=== PATIENT | female | born 1940 | race Caucasian/White ===

== ENCOUNTER 2016-10-07 13:03 | Inpatient (IN) | payer OTHER ==
[~2016-10-07] VITALS: Ht 157.5 cm; Wt 52.6 kg
--- NOTE | 2016-10-07 13:05 | NUR ---
Arrived via [facility] ambulance with altered mental status. Patient presented to work, began behaving abnormally, throwing things, then became lethargic. Placed in room 2 . Placed on director of cardiac cath lab, blood pressure machine and pulse oximeter. To gown for exam. Side rails up. Report given to Stephenie SALINAS.
--- NOTE | 2016-10-07 13:06 | NUR ---
Patient brought in by ambulance. 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 Patient appears lethargic, answering some simple questions, not following commands at this time. Face appears symmetrical, no facial droop noted, unable to assess strength at this time. No deformities/injuries noted. No other complaints/injuries per patient or noted. Addendum: 10/07/16 at 1427 by PAYTON Answers to questions innappropiate at times.
[2016-10-07] MEDS ORDERED: NACL 0.9% 1,000 ML IV SCH (13:08)
--- NOTE | 2016-10-07 13:10 | NUR ---
Dr. Parsons at bedside
[2016-10-07 13:11] VITALS: BP 111/56; PULSE 105; RESP 16; TEMP 97.4; O2SAT 95
--- NOTE | 2016-10-07 13:30 | NUR ---
# 16 FR Blair catheter with use of sterile technique placed. Immediate return of 150 cc clear yellow urine noted. Bedside drainage bag placed below level of bladder. Urine sample collected and sent to lab. Pt tolerated procedure well
[2016-10-07 13:32] LABS: ANION GAP 8 (5-15); CALCIUM 7.8 mg/dL (8.4-11.0); CHLORIDE 101 mmol/L (98-107); CREATININE 0.69 mg/dL (0.55-1.30); GLUCOSE 386 mg/dL (70-99); POTASSIUM 3.5 mmol/L (3.5-5.1); SODIUM SERUM 136 mmol/L (136-145); UREA NITROGEN, BLOOD 17 mg/dL (8-21)
[2016-10-07 13:34] LABS: BASOPHILS % (AUTO) 0.3 % (0.0-2.0); EOSINOPHILS % (AUTO) 0.1 % (0.0-4.0); HEMATOCRIT 34.8 % (36-48); HEMOGLOBIN 12.4 g/dL (12.0-16.0); LYMPHOCYTES # (AUTO) 0.5 K/uL (1.0-5.5); LYMPHOCYTES % (AUTO) 4.4 % (20.5-51.5); MEAN CORPUSCULAR HEMOGLOBIN 29 pg (27-31); MEAN CORPUSCULAR HGB CONC 36 % (32-36); MEAN CORPUSCULAR VOLUME 83 fL (79.0-98.0); MONOCYTES # (AUTO) 0.3 K/uL (0.0-1.0); MONOCYTES % (AUTO) 2.3 % (1.7-9.3); NEUTROPHILS # (AUTO) 10.7 K/uL (1.8-7.7); NEUTROPHILS % (AUTO) 92.9 % (40.0-70.0); PLATELET COUNT (AUTO) 235 K/uL (130-430); RED BLOOD CELL COUNT(AUTO) 4.21 MIL/uL (4.2-6.2); RED CELL DISTRIBUTION WIDTH 12.3 % (9.0-15.0); WHITE BLOOD COUNT (AUTO) 11.5 K/uL (4.8-10.8)
[2016-10-07 13:34] LABS: ABG TOTAL HEMOGLOBIN 12.7 G/dL (12.0-18.0); BLOOD GAS BASE EXCESS -2.5 mmol/L (-3.0-3.0); BLOOD GAS COHb% 0.5 % (0.5-1.5); BLOOD GAS PH 7.389 (7.350-7.450); BLOOD O2Hb% 93.2 % (94.0-97.0)
[2016-10-07 13:35] LABS: PROTHROMBIN TIME 10.5 SECS (9.5-12.5)
[2016-10-07 13:37] LABS: ALANINE AMINOTRANSFERASE 21 U/L (12-78); ALBUMIN 3.6 g/dL (3.4-4.8); ASPARTATE AMINOTRANSFERASE 12 U/L (10-37); TOTAL BILIRUBIN 0.6 mg/dL (0.0-1.0); TOTAL PROTEIN, SERUM 6.7 g/dL (6.4-8.3)
[2016-10-07] MEDS ORDERED: INSULIN REGULAR, HUMAN 10 UNITS/0.1 ML INJ IVP ONE (13:45)
[2016-10-07 14:14] LABS: BILIRUBIN,URINE NEGATIVE (NEGATIVE); BLOOD, URINE NEGATIVE (NEGATIVE); CLARITY/URINE CLEAR (CLEAR); COLOR,URINE YELLOW (YELLOW); GLUCOSE,URINE 3+ (NEGATIVE); KETONES,URINE 1+ (NEGATIVE); LEUKOCYTE ESTERASE ,URINE NEGATIVE (NEGATIVE); NITRITE, URINE NEGATIVE (NEGATIVE); PH,URINE 5.5 (5.0-8.0); PROTEIN URINE NEGATIVE (NEGATIVE); UROBILINOGEN,URINE 0.2 (0.2-1.0)
--- NOTE | 2016-10-07 14:15 | NUR ---
Patient in stable condition, no distress noted, monitoring closely.
[2016-10-07 14:23] LABS: BACTERIA,URINE FEW /HPF (None Seen); MUCUS,URINE None Seen /LPF (None Seen); RBC,URINE 0-3 /HPF (0-3); WBC,URINE 0-3 /HPF (0-3)
--- NOTE | 2016-10-07 14:25 | NUR ---
Daughter and grandson at bedside speaking to patient. Family members state that she knows who she is but answers to questions are not making sense at all times, state that is not her baseline. Per family, patient is aware who they are and that she is in the hospital, unaware of what happened. Speech is mumbled per family. Patient states that she only takes diabetic medication, unaware as to what. Family states will try to obtain medications.
[2016-10-07 14:26] LABS: BARBITURATE, URINE NEGATIVE (NEG <=200); BENZODIAZEPINE, URINE POSITIVE (NEG <=150); CANNABINOID, URINE NEGATIVE (NEG <=50); COCAINE, URINE NEGATIVE (NEG <=150); METHAMPHETAMINES SCREEN,URINE NEGATIVE (NEG <=500); OPIATE, URINE NEGATIVE (NEG <=100); PHENCYCLIDINE SCREEN,URINE NEGATIVE (NEG <=25); UR TRICYCLIC ANTIDEPRESSANTS NEGATIVE (NEG <=300); URINE AMPHETAMINE NEGATIVE (NEG <=500); URINE METHADONE NEGATIVE (NEG <=200); URINE OXYCODONE SCREEN NEGATIVE (NEG <=100); URINE PROPOXYPHENE SCREEN NEGATIVE (NEG <=300)
--- NOTE | 2016-10-07 15:31 | NUR ---
Telemetry strip printed, interpreted as SINUS TACHYCARDIA at 112 bpm, and placed on the chart.
[2016-10-07] MEDS ORDERED: INSULIN REGULAR, HUMAN 100 UNITS/ML, 10 ML VIAL (novoLIN R) SUBCUT PRN (15:45)
[2016-10-07] MEDS ORDERED: NACL 0.9% 1,000 ML IV ONE (15:45)
--- NOTE | 2016-10-07 15:55 | NUR ---
Patient will be admitted to care of [facility]. Admitted to med-surg unit. Will go to room 112A. Summary report printed. Report given to Ana M SALINAS at bedside.
[2016-10-07] MEDS ORDERED: GLUCOSE 15 GM GEL (in 37.5 GM TUBE) PO PRN ×2 (16:00)
[2016-10-07] MEDS ORDERED: DEXTROSE 50%-WATER 50 ML DISP.SYRIN IVP PRN ×2 (16:00)
--- NOTE | 2016-10-07 16:00 | NUR ---
ADMIT NOTE Received pt from ER to the floor with a diagnosis of dm outof control. Admission process initiated. patient oriented to pain management, safety and call light-teach back done.
[2016-10-07 16:21] VITALS: BP 115/59; PULSE 110; RESP 17; TEMP 98.3; O2SAT 98
--- NOTE | 2016-10-07 17:15 | NUR ---
ACCUCHECK 221, ADMINISTERED 2 UNITS REGUALR INSULIN PER SLIDING SCALE. FAMILY AT BEDSIDE, UPDATED ON PLAN OF CARE, VSS, PT VERY TIRED, ABLE TO RESPOND TO QUESTIONS, SAFETY MEASURES IN PLACE, CALL LIGHT WITHIN REACH, WILL FOLLOW UP Addendum: 10/07/16 at 1849 by Ana M Serrano RN WRONG PATIENT; ADMINISTERED 4 UNITS PER SLIDING SCALE
[2016-10-07] MEDS ORDERED: METF-796 PO (17:35)
[2016-10-07] MEDS ORDERED: LOSA50TA20 PO (17:35)
[2016-10-07] MEDS ORDERED: GLIP-172 PO (17:35)
[2016-10-07] MEDS ORDERED: ACETAMINOPHEN 325 MG TABLET PO PRN (18:30)
[2016-10-07] MEDS ORDERED: MAGNESIUM SULFATE 50 ML IV PRN (18:30)
[2016-10-07] MEDS ORDERED: ONDANSETRON HCL 4 MG/2 ML VIAL IVP PRN (18:30)
[2016-10-07] MEDS ORDERED: DOCUSATE SODIUM 100 MG CAPSULE PO PRN (18:30)
[2016-10-07] MEDS ORDERED: LORazepam 2 MG/ML VIAL IVP PRN (18:30)
[2016-10-07] MEDS ORDERED: DEXTROSE 50% JECT 50 ML DISP.SYRIN IVP PRN (18:30)
[2016-10-07] MEDS ORDERED: POTASSIUM CHLORIDE 10 MEQ TAB.PRT.SR PO PRN (18:30)
[2016-10-07] MEDS ORDERED: MORPHINE 2 MG/ML INJ. SYRINGE IVP PRN (18:30)
--- NOTE | 2016-10-07 18:50 | NUR ---
CLOSING NOTE PT LAYING IN BED, RESTING, EASY TO AROUSE, ALERT AND ORIENTED X2, YORUBA SPEAKING, INCONTINENT OF BOWEL AND BLADDER AT THE MOMENT, ACCORDING TO FAMILY THAT IS NOT HER BASELINE. IV TO LEFT HAND, PATENT AND INFUSING NS AT ORDERED RATE. GRESHAM CATHETER IN PLACE AND DRAINING CLEAR YELLOW URINE TO GRAVITY, NO S/S OF DISTRESS, SOB, OR PAIN, PATIENT STATES SHE IS JUST VERY TIRED. PT ORIENTED TO USE OF CALL LIGHT AND IT IS PLACED WITHIN REACH, SAFETY MEASURES IN PLACE, SIDE RAILS UP X2, BED ALARM ON, WILL GIVE REPORT TO FOLLOWING SHIFT.
[2016-10-07 19:00] VITALS: BP 111/55; PULSE 105; RESP 16; TEMP 98; O2SAT 98
--- NOTE | 2016-10-07 19:15 | NUR ---
change of shift.pt.initial assessment.family present@bedside.pt.presents quiescent affect;calm,asleep.arusable but unable 2 maintain awaken/alert status.language barrier extant:tongan:sole language.iv fluids infusing.call ligth placed w/in pt's reach.
[2016-10-07 20:00] VITALS: BP 111/55; PULSE 105; RESP 16; TEMP 98; O2SAT 98
--- NOTE | 2016-10-07 20:00 | NUR ---
pt.assessed.v/s assessed.pt.presents quiescent affect;calm,asleep.v/s values w/in normal limits.pt. repositioned.call light place w/in pt's reach.
--- NOTE | 2016-10-07 20:30 | NUR ---
blood glucose assessed:133mg/dl.i have initiated diabetic teaching w/ family.sepcific;hypo glycemic s/s and action 2 b attended / family meals;6/day blood glucose assessment:ac/hs:objective,snacks;family undedstanding satisfactory.
[2016-10-07] MEDS ORDERED: ZOLPIDEM TARTRATE 5 MG TABLET PO PRN (21:00)
[2016-10-07] MEDS: glipiZIDE XL 5 MG TAB ( GLUCOTROL XL) PO SCH (21:00)
--- NOTE | 2016-10-07 21:00 | NUR ---
2100p medications:attempt 2 administer pt.unable to swallow;2/t drowsy status.call ligth placed w/in pt's reach.
[2016-10-07] MEDS: HEPARIN SODIUM,PORCINE 5000 UNITS/ML VIAL SUBCUT SCH (21:55)
--- NOTE | 2016-10-07 22:00 | NUR ---
pt.assessed.pt.repositioned.pt.presents quiescent affect;calm,asleep.family has left the bedside. pt.arousable but not able 2 maintain awaken status.iv fluids infusing.call light placed w/in pt's reach.
--- NOTE | 2016-10-08 | NUR ---
pt.assessed.v/s assessed.pt.repositioned.pt.presents quiescent affect;calm,asleep. call fausto palced w/in pt's reach.
[2016-10-08 00:45] VITALS: BP 100/50; PULSE 92; RESP 18; TEMP 98.1; O2SAT 95
--- NOTE | 2016-10-08 02:00 | NUR ---
pt.assessed.pt.repositioned.iv fluids infusing.pt.presents quiescent affect;calm,asleep. call light placed w/in pt's reach.
--- NOTE | 2016-10-08 04:00 | NUR ---
pt.assessed.pt.repositioned.iv fluids d/c / sdr's ordered.call light placed w/in pt's reach.pt.arousable.
[2016-10-08 04:13] VITALS: BP 103/60; PULSE 88; RESP 18; TEMP 97.7; O2SAT 92
--- NOTE | 2016-10-08 05:43 | NUR ---
pt.assessed.blood glucose assesseded:170mg/dl.pt.arousable but unable 2 maintain awaken status. call light placed w/in pt's reach.
[2016-10-08] MEDS: INSULIN ASPART 100 UNITS/ML, 10 ML VIAL (NovoLOG) SUBCUT PRN ×4 (06:29→22:00)
--- NOTE | 2016-10-08 06:30 | NUR ---
willhold the insulin coverage this am:po intake poor.iv fl;uids d/c thia am per dr's order.
[2016-10-08 07:15] LABS: BASOPHILS % (AUTO) 0.3 % (0.0-2.0); EOSINOPHILS # (AUTO) 0.1 K/uL (0.0-0.4); EOSINOPHILS % (AUTO) 1.1 % (0.0-4.0); HEMATOCRIT 35.6 % (36-48); HEMOGLOBIN 12.2 g/dL (12.0-16.0); LYMPHOCYTES # (AUTO) 1.7 K/uL (1.0-5.5); LYMPHOCYTES % (AUTO) 21.3 % (20.5-51.5); MEAN CORPUSCULAR HEMOGLOBIN 29 pg (27-31); MEAN CORPUSCULAR HGB CONC 34 % (32-36); MEAN CORPUSCULAR VOLUME 84 fL (79.0-98.0); MONOCYTES # (AUTO) 0.5 K/uL (0.0-1.0); MONOCYTES % (AUTO) 6.2 % (1.7-9.3); NEUTROPHILS # (AUTO) 5.5 K/uL (1.8-7.7); NEUTROPHILS % (AUTO) 71.1 % (40.0-70.0); PLATELET COUNT (AUTO) 232 K/uL (130-430); RED BLOOD CELL COUNT(AUTO) 4.22 MIL/uL (4.2-6.2); RED CELL DISTRIBUTION WIDTH 12.9 % (9.0-15.0); WHITE BLOOD COUNT (AUTO) 7.8 K/uL (4.8-10.8)
[2016-10-08 07:19] LABS: ANION GAP 5 (5-15); CALCIUM 7.7 mg/dL (8.4-11.0); CHLORIDE 110 mmol/L (98-107); CREATININE 0.51 mg/dL (0.55-1.30); GLUCOSE 188 mg/dL (70-99); SODIUM SERUM 142 mmol/L (136-145); UREA NITROGEN, BLOOD 18 mg/dL (8-21)
[2016-10-08 08:00] VITALS: BP 127/61; PULSE 82; RESP 20; TEMP 98.8; O2SAT 95
--- NOTE | 2016-10-08 08:00 | NUR ---
OPENING NOTE RECEIVED REPORT FROM NIGHT NURSE, PATIENT IS RESTING IN BED COMFORTABLY WITH NO COMPLAINTS OF PAIN, NO NOTED DISTRESS, DISCOMFORT OR SOB. PATIENT IS ALERT AND ORIENTED TO SELF AND DATE BUT IS CONFUSED TO WHERE SHE IS AND HOW SHE CAME TO THE HOSPITAL. PATIENT IS AMBULATORY WITH ASSISTANCE, PATIENT IS EDUCATED TO NOT GET UP WITHOUT ASSISTANCE. BED ALARM IS ON AND PATIENT IS NEAR THE NURSES STATION. CALL LIGHT IS WITHIN REACH AND WILL CONTINUE TO MONITOR.
[2016-10-08] MEDS: HEPARIN SODIUM,PORCINE 5000 UNITS/ML VIAL SUBCUT SCH ×2 (08:57→21:48)
[2016-10-08] MEDS ORDERED: LOSARTAN POTASSIUM 50 MG TABLET (COZAAR) PO SCH (09:00)
[2016-10-08] MEDS: glipiZIDE XL 5 MG TAB ( GLUCOTROL XL) PO SCH ×2 (09:02→21:41)
--- NOTE | 2016-10-08 10:23 | NUR ---
Nutrition Update Ray Scale 13 noted. Pt admitted for DM out of control. Diet: CCHO, mechanical soft BMI: 21.2 kg/m2 RD to follow per nutrition care standards.
--- NOTE | 2016-10-08 10:30 | NUR ---
NOTE PATIENT IS RESTING IN BED COMFORTABLY WITH NO COMPLAINTS OF PAIN, NO NOTED DISTRESS, DISCOMFORT OR SOB. PATIENT'S VITAL SIGNS WERE WITHIN NORMAL RANGE AND ALL MORNING MEDICATIONS WERE GIVEN WITH NO PROBLEMS. BED ALARM IS ON AND BED IS IN LOWEST POSITION. FAMILY IS AT BEDSIDE AND CALL LIGHT IS WITHIN REACH. WILL CONTINUE TO MONITOR.
[2016-10-08 12:00] VITALS: BP 140/74; PULSE 92; RESP 17; TEMP 98.2; O2SAT 92
--- NOTE | 2016-10-08 12:38 | NUR ---
NOTE PATIENT IS RESTING IN BED COMFORTABLY WITH NO COMPLAINTS OF PAIN, NO NOTED DISTRESS, DISCOMFORT OR SOB. PATIENT'S BS WAS CHECKED AND IT WAS 252 AND 6 UNITS OF NOVOLOG WAS GIVEN WITH ANOTHER RN TO WITNESS. BED IS IN LOWEST POSITION, BED ALARM IS ON AND CALL LIGHT IS WITHIN REACH. FAMILY IS AT BEDSIDE AND WILL CONTINUE TO MONITOR.
--- NOTE | 2016-10-08 14:30 | NUR ---
NOTE PATIENT IS RESTING COMFORTABLY IN BED WITH NO COMPLAINTS OF PAIN, NO NOTED DISTRESS, DISCOMFORT OR SOB. BED ALARM IS ON AND BED IS IN LOWEST POSITION, FAMILY IS AT BEDSIDE AND CALL LIGHT IS WITHIN REACH. WILL CONTINUE TO MONITOR
[2016-10-08 15:50] VITALS: BP 136/57; PULSE 84; RESP 17; TEMP 97.9; O2SAT 94
--- NOTE | 2016-10-08 16:12 | NUR ---
DISCHARGE PLANNING DC planning to [place]. Faxed SNF referral [phone]. will follow up. Placed transportation packet in nurses station. Addendum: 10/08/16 at 1636 by Sabina Shaikh DP Called [facility] spoke with JAZMIN Dickens. Faxed requested EMR [phone]. Chrissie stated on-call JAZMIN [phone] follow prompts to follow up if SNF will be authorized. Confirmed with Chrissie Astudillo [facility] contracted facility.
--- NOTE | 2016-10-08 16:28 | NUR ---
NOTE PATIENT IS RESTING IN BED COMFORTABLY WITH NO COMPLAINTS OF PAIN, NO NOTED DISTRESS, DISCOMFORT OR SOB. BED ALARM IS ON AND BED IS IN LOWEST POSITION AND FAMILY IS AT BEDSIDE. CALL LIGHT IS WITHIN REACH AND WILL CONTINUE TO MONITOR.
--- NOTE | 2016-10-08 18:34 | NUR ---
CLOSING NOTE PATIENT IS RESTING COMFORTABLY IN BED WITH NO COMPLAINTS OF PAIN, NO NOTED DISTRESS, DISCOMFORT OR SOB. PATIENT'S BS WAS TAKEN AND IT WAS 267 AND 6 UNITS OF NOVOLOG WAS GIVEN WITH ANOTHER RN TO WITNESS. BED ALARM IS ON AND BED IS LOWEST POSITION. CALL LIGHT IS WITHIN REACH AND FAMILY IS AT BEDSIDE. WILL GIVE REPORT TO NIGHT NURSE.
[2016-10-08 19:10] VITALS: BP 129/81; PULSE 87; RESP 18; TEMP 97.6; O2SAT 95
--- NOTE | 2016-10-08 19:10 | NUR ---
INITIAL ROUNDS RECVD PT IN BED, A/A/O X2 WITH DAUGHTER @ BEDSIDE. NO C/O PAIN AND NO DISTRESS NOTED @ THIS TIME. V/S 129/81,97.6,87,18,95% RA. IV NOTED TO R a/c G 20, NO INFILTRATE, WITH GOOD BLOOD RETURN. DISCUSSED PLAN OF CARE WITH PT AND VERBALIZED UNDERSTANDING. CALL LIGHT WITHIN REACH, WILL CONT TO MONITOR.
--- NOTE | 2016-10-08 21:10 | NUR ---
ROUNDS PT IS AWAKE @ THIS TIME WITH FAMILY @ BEDSIDE. NO C/O PAIN AND NO DISTRESS NOTED. LEFT BED IN LOW POSITION WITH CALL LIGHT WITHIN REACH. WILL CONT TO MONITOR.
--- NOTE | 2016-10-08 23:10 | NUR ---
ROUNDS PT IS AWAKE, WITH FAMILY @ BEDSIDE. NO S/S O PAIN OR ANY DISTRESS. LEFT BED IN LOW POSITION WITH CALL LIGHT WITHIN REACH. WILL CONT TO MONITOR.
[2016-10-09 01:03] VITALS: BP 129/58; PULSE 76; RESP 19; TEMP 97.7; O2SAT 95
--- NOTE | 2016-10-09 01:10 | NUR ---
ROUNDS PT IS RESTING COMFORTABLY @ THIS TIME. NO S/S O PAIN OR ANY DISTRESS. LEFT BED IN LOW POSITION WITH CALL LIGHT WITHIN REACH. WILL CONT TO MONITOR.
[2016-10-09 04:00] VITALS: BP 111/69; PULSE 87; RESP 16; TEMP 98.4; O2SAT 96
--- NOTE | 2016-10-09 05:10 | NUR ---
ASSISTED TO REPOSITION ASSISTED TO TURNED IN BED. NO S/S OF PAIN AND NO RESPI DISTRESS NOTED. CALL LIGHT WITHIN REACH, WILL CONT TO MONITOR.
[2016-10-09] MEDS: INSULIN ASPART 100 UNITS/ML, 10 ML VIAL (NovoLOG) SUBCUT PRN ×4 (06:10→22:38)
[2016-10-09 06:41] LABS: BASOPHILS % (AUTO) 0.5 % (0.0-2.0); EOSINOPHILS # (AUTO) 0.2 K/uL (0.0-0.4); HEMATOCRIT 37.8 % (36-48); LYMPHOCYTES # (AUTO) 1.9 K/uL (1.0-5.5); LYMPHOCYTES % (AUTO) 25.1 % (20.5-51.5); MEAN CORPUSCULAR HEMOGLOBIN 29 pg (27-31); MEAN CORPUSCULAR HGB CONC 35 % (32-36); MEAN CORPUSCULAR VOLUME 84 fL (79.0-98.0); MONOCYTES # (AUTO) 0.5 K/uL (0.0-1.0); NEUTROPHILS # (AUTO) 5.1 K/uL (1.8-7.7); NEUTROPHILS % (AUTO) 65.4 % (40.0-70.0); PLATELET COUNT (AUTO) 283 K/uL (130-430); RED BLOOD CELL COUNT(AUTO) 4.49 MIL/uL (4.2-6.2); RED CELL DISTRIBUTION WIDTH 12.6 % (9.0-15.0); WHITE BLOOD COUNT (AUTO) 7.7 K/uL (4.8-10.8)
--- NOTE | 2016-10-09 06:56 | NUR ---
FINAL ROUNDS PT IS RESTING @ THIS TIME. NO S/S OF PAIN OR ANY DISTRESS NOTED. V/S ARE WNL. ALL NEEDS MET AND ANTICIPATED BY NOC NURSES. BED IN LOW POSITION WITH CALL SIDE RAILS UP X2 FOR SAFETY. CALL LIGHT WITHIN REACH, ENDORSED.
[2016-10-09 07:12] LABS: ANION GAP 7 (5-15); CALCIUM 7.9 mg/dL (8.4-11.0); CHLORIDE 108 mmol/L (98-107); CREATININE 0.55 mg/dL (0.55-1.30); GLUCOSE 212 mg/dL (70-99); POTASSIUM 3.9 mmol/L (3.5-5.1); SODIUM SERUM 142 mmol/L (136-145); UREA NITROGEN, BLOOD 14 mg/dL (8-21)
--- NOTE | 2016-10-09 07:52 | NUR ---
Handoff rounds. Patient blood sugar stabilized. Will verify meal tray pass.
[2016-10-09 08:58] VITALS: BP 125/62; PULSE 91; RESP 16; TEMP 96.6; O2SAT 99
--- NOTE | 2016-10-09 10:03 | NUR ---
Family member of patient at bedside at this time during rounds. Extra cup of coffee, decaf, for patient at this time. Two non-dailry creamer given. No sugar.
[2016-10-09 12:11] VITALS: BP 139/70; PULSE 88; RESP 16; TEMP 97; O2SAT 95
--- NOTE | 2016-10-09 12:11 | NUR ---
Rounds for lunch. Patient accucheck due. Coverage as per sliding scale.
[2016-10-09] MEDS: LOSARTAN POTASSIUM 25 MG TABLET PO SCH (12:20)
--- NOTE | 2016-10-09 12:21 | NUR ---
Ice brought per request of patient and family.
[2016-10-09] MEDS: glipiZIDE XL 5 MG TAB ( GLUCOTROL XL) PO SCH ×2 (12:32→22:35)
[2016-10-09] MEDS: HEPARIN SODIUM,PORCINE 5000 UNITS/ML VIAL SUBCUT SCH ×2 (12:33→22:41)
--- NOTE | 2016-10-09 15:30 | NUR ---
DC of guillen as per request of MD. Patient notes discomfort. Cloudy guillen urine, 700ml, emptied to toilet at this time.
[2016-10-09 16:00] VITALS: BP 155/76; PULSE 85; RESP 21; TEMP 97.6; O2SAT 95
--- NOTE | 2016-10-09 16:58 | NUR ---
Accucheck elevation covered as per sliding scale insulin guideline.
--- NOTE | 2016-10-09 18:16 | NUR ---
Patient/family request for alex malone at this time. MD answered and gave order for the item.
[2016-10-09] MEDS ORDERED: INSULIN ASPART 100 UNITS/ML, 10 ML VIAL (NovoLOG) SUBCUT PRN (18:45)
[2016-10-09 19:05] VITALS: BP 127/75; PULSE 78; RESP 18; TEMP 98.2; O2SAT 98
--- NOTE | 2016-10-09 19:05 | NUR ---
INITIAL ROUNDS RECVD PT IN BED, A/A/O X2 WITH FAMILY @ BEDSIDE. NO C/O PAIN AND NO DISTRESS NOTED @ THIS TIME. V/S 127/75,98.2,78,18,98% RA. IV NOTED TO R A/C G 20, NO INFILTRATE, WITH GOOD BLOOD RETURN. DISCUSSED PLAN OF CARE WITH PT AND VERBALIZED UNDERSTANDING. CALL LIGHT WITHIN REACH, WILL CONT TO MONITOR.
--- NOTE | 2016-10-09 19:28 | NUR ---
Handoff with noc nurse at bedside.
--- NOTE | 2016-10-09 21:05 | NUR ---
ROUNDS PT IS RESTING IN BED WITH FAMILY @ BEDSIDE. NO C/O PAIN AND NO SOB NOTED. BED IN LOW POSITION WITH CALL LIGHT WITHIN REACH. WILL CONT TO MONITOR.
--- NOTE | 2016-10-09 23:05 | NUR ---
ASSISTED TO B/R ASSISTED TO B/R AND SAFELY BACK TO BED. NO S/S OF PAIN AND NO DISTRESS NOTED. BED IN LOW POSITION WITH CALL LIGHT WITHIN REACH. WILL CONT TO MONITOR.
--- NOTE | 2016-10-10 01:05 | NUR ---
ROUNDS PT IS RESTING COMFORTABLY IN BED @ THIS TIME. NO S/S OF PAIN AND NO DISTRESS NOTED. BED IN LOW POSITION WITH CALL LIGHT WITHIN REACH. WILL CONT TO MONITOR.
[2016-10-10] MEDS: INSULIN ASPART 100 UNITS/ML, 10 ML VIAL (NovoLOG) SUBCUT PRN ×2 (06:19→11:49)
[2016-10-10 07:15] LABS: BASOPHILS % (AUTO) 0.5 % (0.0-2.0); EOSINOPHILS # (AUTO) 0.2 K/uL (0.0-0.4); EOSINOPHILS % (AUTO) 3.1 % (0.0-4.0); HEMATOCRIT 38.4 % (36-48); HEMOGLOBIN 13.1 g/dL (12.0-16.0); LYMPHOCYTES # (AUTO) 1.9 K/uL (1.0-5.5); LYMPHOCYTES % (AUTO) 26.1 % (20.5-51.5); MEAN CORPUSCULAR HEMOGLOBIN 29 pg (27-31); MEAN CORPUSCULAR HGB CONC 34 % (32-36); MEAN CORPUSCULAR VOLUME 86 fL (79.0-98.0); MONOCYTES # (AUTO) 0.3 K/uL (0.0-1.0); MONOCYTES % (AUTO) 4.6 % (1.7-9.3); NEUTROPHILS # (AUTO) 4.9 K/uL (1.8-7.7); NEUTROPHILS % (AUTO) 65.7 % (40.0-70.0); PLATELET COUNT (AUTO) 255 K/uL (130-430); RED BLOOD CELL COUNT(AUTO) 4.49 MIL/uL (4.2-6.2); RED CELL DISTRIBUTION WIDTH 12.8 % (9.0-15.0); WHITE BLOOD COUNT (AUTO) 7.3 K/uL (4.8-10.8)
[2016-10-10 07:19] LABS: ANION GAP 9 (5-15); CALCIUM 8.3 mg/dL (8.4-11.0); CHLORIDE 105 mmol/L (98-107); CREATININE 0.57 mg/dL (0.55-1.30); GLUCOSE 205 mg/dL (70-99); POTASSIUM 3.6 mmol/L (3.5-5.1); SODIUM SERUM 141 mmol/L (136-145); UREA NITROGEN, BLOOD 17 mg/dL (8-21)
[2016-10-10 08:00] VITALS: BP_SYST 143; BP_SYST 149; BP_DIAS 59; BP_DIAS 78; PULSE 83; PULSE 90; RESP 17; TEMP 97.1; TEMP 98; O2SAT 96
--- NOTE | 2016-10-10 08:00 | NUR ---
INITIAL NOTE PT LAYING IN BED, ALERT AND ORIENTED, MALTESE SPEAKING, NO S/S OF DISTRESS OR COMPLAINT OF PAIN, IV TO RAC INTACT AND PATENT, VSS. DISCUSSED PLAN OF CARE WITH PATIENT, PATIENT AGREES, SAFETY MEASURES IN PLACE, BED IN LOW POSITION AND LOCKED, PT REORIENTED TO USE OF CALL LIGHT AND IT IS PLACED WITHIN REACH, WILL CONTINUE TO MONITOR
[2016-10-10] MEDS: glipiZIDE XL 5 MG TAB ( GLUCOTROL XL) PO SCH (08:51)
[2016-10-10] MEDS: LOSARTAN POTASSIUM 25 MG TABLET PO SCH (08:51)
[2016-10-10] MEDS: HEPARIN SODIUM,PORCINE 5000 UNITS/ML VIAL SUBCUT SCH (08:52)
--- NOTE | 2016-10-10 10:00 | NUR ---
ROUNDS FAMILY AT BEDSIDE, PT STATES SHE HAS NO NEEDS AT THIS TIME, WILL CONTINUE TO MONITOR
--- NOTE | 2016-10-10 11:00 | NUR ---
DR HYMAN MAKING ROUNDS, RECEIVED DISCHARGE ORDER WITH HOME HEALTH TO FOLLOW UP, ORDER NOTED
[2016-10-10] MEDS ORDERED: GLIP10TA11 PO (11:02)
[2016-10-10] MEDS ORDERED: LISI10TA5 PO (11:02)
[2016-10-10] MEDS ORDERED: SITA100T7 PO (11:02)
--- NOTE | 2016-10-10 11:48 | NUR ---
DC PLANNING: RECEIVED DC ORDER FROM TO [facility] W/ CONTRACTED HOME HEALTH. CALLED/ FAXED DC ORDER AND CLINICALS TO [email or web address] FAX # [phone] TEL # [phone] AND TO [employer] FAX # [phone];TEL# [phone]. BOTH OFFICES ARE CLOSED ON WEEKENDS AND WILL BE OPEN ON TUESDAY.
--- NOTE | 2016-10-10 12:00 | NUR ---
PATIENT PROVIDED WITH TRANSITIONAL CARE PAPERWORK AND INSTRUCTION, PER CASE MANAGEMENT, INSURANCE WAS FAXED NECESSARY PAPER AND HOME HEALTH WOULD FOLLOW UP FOR PATIENT EDUCATION ON DIABETIC TEACHING AND SAFETY EVAL. PT AND FAMILY VERBALIZED UNDERSTANDING. WILL CONTINUE TO MONITOR
[2016-10-10 12:10] VITALS: BP 147/72; PULSE 76; RESP 16; TEMP 97; O2SAT 97
[2016-10-10 12:34] VITALS: BP 147/72; PULSE 76; RESP 16; TEMP 97; O2SAT 97
--- NOTE | 2016-10-10 14:15 | NUR ---
D/C Patient Patient given medication reconciliation form and D/C instructions. Exit Care provided. Patient verbalized understanding. MD discussed with patient the results and treatment provided. Ambulatory with steady gait for discharge to home. Patient in stable condition, ID band removed. IV catheter removed, intact and dressing applied, no active bleeding. Patient educated on pain management. All belongings sent with patient. PATIENT LEFT FACILITY VIA WHEELCHIAR WITH AQUATIC ECOLOGIST AND SEVERAL FAMILY MEMBERS
--- NOTE | 2016-10-11 08:58 | NUR ---
DISCHARGE PLANNING Called [facility] [phone] spoke with JAZMIN Benz regarding request for contracted home health. Tuyet stated request to arrange home health has not been received and takes 24hrs for them to receive faxed request. Tuyet advised [facility] to call back after 1pm today. Addendum: 10/11/16 at 1042 by Sabina COOL Received call from JAZMIN Dickens who will fax requested contracted home health list. Chrissie can be reached [phone] Ext:[phone]. Addendum: 10/11/16 at 1055 by Sabina COOL Faxed home health order to [facility] [phone]. will follow up. Addendum: 10/11/16 at 1255 by Sabina Shaikh DP Spoke with Melinda in intake dept at [facility] patient accepted pending insurance auth. Melinda called and left message and waiting return call back from JAZMIN Dickens. Addendum: 10/11/16 at 1452 by Sabina Shaikh DP Called Chrissie [phone] Ext:[phone] left voice message requesting insurance auth to be forwarded to [facility]. Will continue to follow up. Addendum: 10/12/16 at 0950 by Sabina COOL Called and spoke with Melinda at [facility] who confirmed auth was received and visit arrangements have been made with patient to see her tomorrow 10/13.
--- NOTE | 2016-10-18 14:21 | NUR ---
Discharge Follow Up Phone Call DERRICK BOAT LEVER OPERATOR phoned patient, , but patient only spoke [place] and requested DERRICK BOAT LEVER OPERATOR contact her daughter. DERRICK BOAT LEVER OPERATOR phoned patient's daughters, Madonna [phone] and Bridgette [phone], and left voicemail messages. Madonna phoned back. Madonna stated that patient is doing better. They filled her prescriptions and patient is taking her medication as directed. Patient had not been using a blood glucose monitor for the past year. Madonna got her a new one with a large supply of test strips and is encouraging her to test regularly. Patient is not always compliant with her diet. DERRICK BOAT LEVER OPERATOR asked if patient needed more education, Madonna stated that patient does understand the diet. Patient has attended her follow up appointment with Dr Burciaga. [facility] has been to the home and have also monitored the use of the blood glucose monitor and discussed DM diet. Madonna had no other questions or concerns.
== END 2016-10-10 14:18 | disposition home health service (06) | DRG 637 ==
LOC: SED 13:03 → SMU 15:40
PROVIDERS: ADMIT General Practice; ATTEND General Practice
DX: E11.65 Type 2 diabetes mellitus with hyperglycemia (principal); G93.41 Metabolic encephalopathy; E87.6 Hypokalemia; E83.51 Hypocalcemia; I10 Essential (primary) hypertension; Z79.4 Long term (current) use of insulin; Z71.3 Dietary counseling and surveillance
CPT/HCPCS: 36415; 70450-TC; 71010; 80048; 80053; 80307; 81000-TC; 82803-TC; 82962; 83605; 83735-TC; 83880; 84484; 85025; 85610-TC; 85730-TC; 87040-TC; 93005; 96374; 97110-GP; 97116-GP; 97530-GP; 99285; J1644; J1815; J7030

== ENCOUNTER 2017-08-26 18:46 | Emergency (ER) | payer OTHER ==
[~2017-08-26] VITALS: Ht 142.2 cm; Wt 49.0 kg
[~2017-08-26 18:46] MED LIST: GLIP10TA11 PO; LISI10TA5 PO; METF-796 PO; SITA100T7 PO
[2017-08-26 19:02] VITALS: BP_SYST 145
[2017-08-26 19:13] LABS: BILIRUBIN,URINE NEGATIVE (NEGATIVE); BLOOD, URINE 2+ (NEGATIVE); CLARITY/URINE CLOUDY (CLEAR); COLOR,URINE YELLOW (YELLOW); GLUCOSE,URINE 3+ (NEGATIVE); KETONES,URINE TRACE (NEGATIVE); LEUKOCYTE ESTERASE ,URINE 2+ (NEGATIVE); NITRITE, URINE NEGATIVE (NEGATIVE); PH,URINE 5.5 (5.0-8.0); PROTEIN URINE NEGATIVE (NEGATIVE); UROBILINOGEN,URINE 0.2 (0.2-1.0)
[2017-08-26 19:26] LABS: WBC,URINE >100 /HPF (0-3)
[2017-08-26 19:27] LABS: BACTERIA,URINE RARE /HPF (None Seen); YEAST,URINE Few /HPF (None Seen)
[2017-08-26] MEDS ORDERED: NITROFURANTOIN MONOHYD/M-CRYST 100 MG CAPSULE PO ONE (19:30)
[2017-08-26] MEDS ORDERED: PHENAZOPYRIDINE HCL 100 MG TABLET PO ONE (19:30)
[2017-08-26 19:45] VITALS: BP_SYST 138
== END 2017-08-26 19:45 | disposition home or self-care (01) ==
LOC: SED 18:46
DX: N39.0 Urinary tract infection, site not specified (principal); I10 Essential (primary) hypertension; E11.9 Type 2 diabetes mellitus without complications; E78.00 Pure hypercholesterolemia, unspecified; Z79.899 Other long term (current) drug therapy
CPT/HCPCS: 81000-TC; 87086; 99284

== ENCOUNTER 2017-09-10 20:19 | Emergency (ER) | payer OTHER ==
[~2017-09-10] VITALS: Ht 160 cm; Wt 53.5 kg
[2017-09-10 20:20] VITALS: BP_SYST 161
--- NOTE | 2017-09-10 20:20 | NUR ---
Patient to ER bed 7 to gown for evaluation. Side rails up. Report given to Chandan SALINAS.
--- NOTE | 2017-09-10 20:20 | NUR ---
Pt report received from RITA Topete. Pt arrives in W/C moaning and in tears with c/o lower pelvic pain since 17:00 that began at home after walking around at a swap meet. Pt tx here 2 weeks ago for UTI.
--- NOTE | 2017-09-10 20:20 | NUR ---
ED Kwaw at bedside for medical evaluation.
[2017-09-10] MEDS ORDERED: KETOROLAC TROMETHAMINE 30 MG VIAL IVP ONE (20:30)
[2017-09-10] MEDS ORDERED: NACL 0.9% 1,000 ML IV ONE (20:30)
--- NOTE | 2017-09-10 20:35 | NUR ---
# 18 gauge angiocath placed to LAC. Use of asceptic technique. Opsite placed over site. Blood return noted. Blood for lab drawn from site. Flushed with 10 cc of normal saline. No evidence of infiltration noted. Patient tolerated well.
--- NOTE | 2017-09-10 20:40 | NUR ---
In/Out urinary cath placed, 150 mL clear-cloudy urine return. Sample collected and sent to lab.
[2017-09-10] MEDS ORDERED: cefTRIAXone 2 GM VIAL ONE (20:50)
[2017-09-10 20:55] LABS: BILIRUBIN,URINE NEGATIVE (NEGATIVE); GLUCOSE,URINE 3+ (NEGATIVE); KETONES,URINE NEGATIVE (NEGATIVE); LEUKOCYTE ESTERASE ,URINE 2+ (NEGATIVE); NITRITE, URINE NEGATIVE (NEGATIVE); PROTEIN URINE NEGATIVE (NEGATIVE); UROBILINOGEN,URINE 0.2 (0.2-1.0)
[2017-09-10 21:06] LABS: BLOOD, URINE TRACE (NEGATIVE); CLARITY/URINE HAZY (CLEAR); COLOR,URINE STRAW (YELLOW)
[2017-09-10 21:08] LABS: RBC,URINE 0-3 /HPF (0-3); WBC,URINE 50-80 /HPF (0-3)
--- NOTE | 2017-09-10 21:08 | NUR ---
Lab at bedside to redraw blood. Previous sample hemolyzed.
[2017-09-10 21:09] LABS: BACTERIA,URINE MODERATE /HPF (None Seen); MUCUS,URINE None Seen /LPF (None Seen); YEAST,URINE Few /HPF (None Seen)
[2017-09-10 21:23] LABS: BASOPHILS # (AUTO) 0.1 K/uL (0.0-0.2); BASOPHILS % (AUTO) 0.9 % (0.0-2.0); EOSINOPHILS # (AUTO) 0.2 K/uL (0.0-0.4); EOSINOPHILS % (AUTO) 2.3 % (0.0-4.0); HEMATOCRIT 35.5 % (36-48); HEMOGLOBIN 11.9 g/dL (12.0-16.0); LYMPHOCYTES % (AUTO) 29.2 % (20.5-51.5); MEAN CORPUSCULAR HEMOGLOBIN 29 pg (27-31); MEAN CORPUSCULAR HGB CONC 33 % (32-36); MEAN CORPUSCULAR VOLUME 87 fL (79.0-98.0); MONOCYTES # (AUTO) 0.5 K/uL (0.0-1.0); MONOCYTES % (AUTO) 7.1 % (1.7-9.3); NEUTROPHILS # (AUTO) 3.9 K/uL (1.8-7.7); NEUTROPHILS % (AUTO) 60.5 % (40.0-70.0); PLATELET COUNT (AUTO) 272 K/uL (130-430); RED BLOOD CELL COUNT(AUTO) 4.07 MIL/uL (4.2-6.2); RED CELL DISTRIBUTION WIDTH 12.4 % (9.0-15.0); WHITE BLOOD COUNT (AUTO) 6.7 K/uL (4.8-10.8)
[2017-09-10 21:30] LABS: ANION GAP 4 (5-15); CALCIUM 8.3 mg/dL (8.4-11.0); CHLORIDE 102 mmol/L (98-107); CREATININE 0.68 mg/dL (0.55-1.30); GLUCOSE 394 mg/dL (70-99); POTASSIUM 4.2 mmol/L (3.5-5.1); SODIUM SERUM 133 mmol/L (136-145); UREA NITROGEN, BLOOD 21 mg/dL (8-21)
--- NOTE | 2017-09-10 21:30 | NUR ---
Pt verbalizes improvement in pain.
[2017-09-10 21:34] LABS: ALANINE AMINOTRANSFERASE 13 U/L (12-78); ALBUMIN 3.2 g/dL (3.4-4.8); ASPARTATE AMINOTRANSFERASE 10 U/L (10-37); TOTAL BILIRUBIN 0.4 mg/dL (0.0-1.0)
[2017-09-10 22:02] VITALS: BP_SYST 145
--- NOTE | 2017-09-10 22:02 | NUR ---
Patient given written and verbal discharge instructions and verbalizes understanding. ER MD discussed with patient the results and treatment provided. Patient in stable condition. ID arm band removed. IV catheter removed intact and dressing applied, no active bleeding. Rx of Pyridium and Cipro given. Patient educated on pain management and to follow up with PMD. Pain Scale 2/10. Opportunity for questions provided and answered. Medication side effect fact sheet provided.
== END 2017-09-10 22:02 | disposition home or self-care (01) ==
LOC: SED 20:19
DX: N39.0 Urinary tract infection, site not specified (principal); E11.9 Type 2 diabetes mellitus without complications; I10 Essential (primary) hypertension; E78.00 Pure hypercholesterolemia, unspecified; Z90.710 Acquired absence of both cervix and uterus; Z88.5 Allergy status to narcotic agent; Z79.899 Other long term (current) drug therapy
CPT/HCPCS: 36415; 80053; 81000; 85025; 87086; 96365; 96375; 99284; J0696; J1885; J7030; J7060